=== PATIENT | male | born 1990 | race African-American/Black ===

== ENCOUNTER 2016-12-25 10:46 | Emergency (ER) | payer SELFPAY ==
[~2016-12-25 10:46] MED LIST: AMOXICILLIN500 MG PO; COMPAZINE10 M PO; COMPAZINE10 MG PO; CYCLOBENZAPRINE5 M1 PO; ERY-TAB250 MG PO; EXCEDRIN MIGRAI1 TAB PO; IBUPROFEN800 MG PO; NO MEDICATIONS; NORCO 5/325 TAB1 TAB PO; OXYCONTIN40 M2 PO; PREDNISONE20 MG PO; VALIUM5 M1 PO
[2016-12-25] MEDS ORDERED: NO HOME MEDS (11:05)
[2016-12-25] MEDS ORDERED: CLOTRIMAZOLE15 G2 TP (11:59)
[2017-03-01] MEDS ORDERED: MEDROL4 M2 PO (11:39)
[2017-03-01] MEDS ORDERED: PERCOCET 5-3251 EACH PO (11:39)
== END 2016-12-25 13:09 ==
LOC: EDMED 10:46
DX: Z20.2 Contact with and (suspected) exposure to infections with a predominantly sexual mode of transmission (principal); F17.200 Nicotine dependence, unspecified, uncomplicated; Z98.890 Other specified postprocedural states
CPT/HCPCS: J0696